=== PATIENT | female | born 1965 | race Caucasian/White ===

== ENCOUNTER → 2017-03-17 | Outpatient (CLI) | payer OTHER ==
--- NOTE | 2017-03-17 22:11 | Diagnostic Imaging Report ---
Digital mammogram bilateral diagnostic. INDICATION: Left breast pain. The current study was also evaluated with a Computer Aided Detection (CAD) system. This is the patient's baseline study. At this time, the patient does complain of pain in the medial aspect of the left breast. FINDINGS: The fibroglandular tissue in both breasts is heterogeneously dense. This does limit the sensitivity of this exam. There is no primary or secondary sign of malignancy noted. There is no abnormality involving the left breast to account for patient's pain. Even so, I would recommend that ultrasound be performed for further study. IMPRESSION: There is no evidence of malignancy or for an acute abnormality of the left breast. Ultrasound would be recommended for further study. ACR BI-RADS Category 0: Incomplete. (Needs additional imaging evaluation). Result letter will be mailed to the patient. Note: At least 10% of breast cancer is not imaged by mammography. Dictated by: Dictated on workstation # [id number]
--- NOTE | 2017-03-17 22:39 | Diagnostic Imaging Report ---
EXAM: Ultrasound of the left breast. INDICATION: Left breast pain. FINDINGS: By history, the patient has pain in the left breast. The diagnostic mammogram performed earlier today failed to show any sign of malignancy. On this exam, there is no discrete solid or cystic mass in the left breast to account for the patient's pain. There is no sign of an abscess either. IMPRESSION: There is no evidence for malignancy or for an acute abnormality. Clinical follow up is recommended. ACR BI-RADS Category 1: Negative. Result letter will be mailed to the patient. Note: At least 10% of breast cancer is not imaged by mammography. Dictated by: Dictated on workstation # [id number]
== END ==
LOC: RAD 13:48
PROVIDERS: ATTEND Nurse Practitioner Family
DX: L53.9 Erythematous condition, unspecified (principal); N64.4 Mastodynia
CPT/HCPCS: 76641; 77066